=== PATIENT | male | born 1995 | race Caucasian/White ===

== ENCOUNTER 2017-08-08 03:37 | Emergency (ER) | payer OTHER ==
[2017-08-08 03:43] VITALS: TEMP 36.9; Ht 177.8 cm
--- NOTE | 2017-08-08 03:47 | EMERGENCY ROOM VISIT NOTE ---
History Report prepared by Scribe: Kareen Olea Under the Supervision of: Dr. Ankur Jacobsen D.O. First contact with patient: 03:41 Chief Complaint: OVERDOSE (ACCIDENTAL) Stated Complaint: OVERDOSE History of Present Illness The patient is a 21 year old male who presents to the Emergency Room with complaints of a possible overdose. He was brought to the ED via EMS. EMS reports he was found stumbling around the intersection of [facility] and [facility] in [facility]. The patient admits to drinking alcohol but denies any illegal drug use. He was given 4 mg of Ativan in the field after being uncooperative with EMS. There are no signs of trauma on the patient. 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 A total of ten systems were reviewed and were otherwise negative. Past Medical & Surgical Medical Problems: (1) No significant past medical history Social History Alcohol Use: occasionally Drug Use: other Marital Status: single Housing Status: lives with roommate Occupation Status: [employer] student Current/Historical Medications Unable to Obtain Active Prescriptions or Reported Meds Physical Exam Vital Signs Date Time Temp Pulse Resp B/P (MAP) Pulse Ox O2 Delivery O2 Flow Rate FiO2 08/08/17 04:14 101 22 122/58 95 Room Air 08/08/17 04:00 95 Room Air 08/08/17 03:49 141 08/08/17 03:43 36.9 147 22 130/61 100 Room Air Physical Exam GENERAL: Patient is awake, babbling and confused, not cooperative. HENT: Normocephalic, atraumatic. Oropharynx unremarkable. EYES: Normal conjunctiva. Sclera non-icteric. NECK: Supple. No nuchal rigidity. FROM. No JVD. RESPIRATORY: Clear to auscultation. CARDIAC: Tachycardic heart rate, normal rhythm. Extremities warm and well perfused. Pulses equal. ABDOMEN: Soft, non-distended. No tenderness to palpation. No rebound or guarding. No masses. RECTAL: Deferred. MUSCULOSKELETAL: No signs of trauma. Chest examination reveals no tenderness. The back is symmetrical on inspection without obvious abnormality. There is no CVA tenderness to palpation. No joint edema. LOWER EXTREMITIES: No signs of trauma. Calves are equal size bilaterally and non -tender. No edema. No discoloration. NEURO: Normal sensorium. No sensory or motor deficits noted. SKIN: No rash or jaundice noted. PSYCHIATRIC: Patient is agitated. Medical Decision & Procedures Laboratory Results 08/08/17 03:45 Test 08/08/17 03:45 Anion Gap 9.0 mmol/L (3-11) Estimated GFR () 146.1 Estimated GFR (Non- 126.0 BUN/Creatinine Ratio 12.7 (10-20) Calcium Level 8.4 mg/dl (8.5-10.1) Ethyl Alcohol mg/dL 344.0 mg/dl (0-3) Laboratory results reviewed by me Medications Administered Medications (Trade) Dose Ordered Sig/Jensen Route Start Time Stop Time Status Last Admin Dose Admin Haloperidol Lactate (Haldol Inj) 5 mg NOW STAT IM 08/08/17 03:48 08/08/17 03:49 DC 08/08/17 03:59 5 MG ED Course 1542: The patient was evaluated in room B9. A complete history and physical exam was performed. 0348: Haldol 5 mg IM. 0545: I reevaluated the patient. He is resting comfortably. I discussed his results and discharge instructions and he verbalized complete understanding and agreement. Medical Decision The differential diagnoses considered include alcohol intoxication, toxicologic , infection, hypoglycemia, electrolyte abnormalities, cardiac sources, intracerebral event, neurologic, as well as others were entertained. Patient resting in no distress on repeat examination. Patient will be observed until he has a sober ride or is with a normal mentation Medication Reconcilliation Current Medication List: was personally reviewed by me Blood Pressure Screening Patient's blood pressure: Normal blood pressure Blood pressure disposition: Did not require urgent referral Impression Primary Impression: Alcohol intoxication Scribe Attestation The scribe's documentation has been prepared under my direction and personally reviewed by me in its entirety. I confirm that the note above accurately reflects all work, treatment, procedures, and medical decision making performed by me. Departure Information Dispostion Home / Self-Care Prescriptions Unable to Obtain Active Prescriptions or Reported Meds Patient Instructions Alcohol Intoxication - [facility], My [facility] Additional Instructions Avoid alcohol, follow-up primary care physician, return if worse
[2017-08-08] MEDS ORDERED: HALOPERIDOL LACTATE 5 MG/ML 1 ML VIAL IM STA (03:48)
[2017-08-08 04:00] VITALS: O2SAT 95
[2017-08-08 04:11] LABS: BLOOD UREA NITROGEN 11 mg/dl (7-18); BUN/CREATININE RATIO 12.7 (10-20); CALCIUM 8.4 mg/dl (8.5-10.1); CARBON DIOXIDE 26 mmol/L (21-32); CHLORIDE 106 mmol/L (98-107); CREATININE 0.84 mg/dl (0.60-1.40); GLUCOSE 135 mg/dl (70-99); POTASSIUM 3.2 mmol/L (3.5-5.1); SODIUM 141 mmol/L (136-145)
[2017-08-08 13:21] VITALS: BP 119/79; PULSE 75; O2SAT 99
== END 2017-08-08 13:23 | disposition home or self-care (01) ==
LOC: EDBD 03:37 → C.EDB 03:39
DX: F10.129 Alcohol abuse with intoxication, unspecified (principal)